=== PATIENT | male | born 1990 | race Hispanic/Latino ===

== ENCOUNTER 2018-09-29 09:20 | Emergency (ER) | payer SELFPAY ==
[2018-09-29] MEDS ORDERED: ACETAMINOPHEN EXTRA STRENGTH 500 MG TABLET ONE (09:42)
[2018-09-29 10:23] LABS: BILIRUBIN,URINE Negative (NEGATIVE); COLOR,URINE Yellow (YELLOW); GLUCOSE, URINE (UA) Negative (NEGATIVE); KETONES,URINE Trace mg/dL (NEGATIVE); LEUKOCYTE ESTERASE ,URINE Negative (NEGATIVE); NITRATE,URINE Negative (NEGATIVE); OCCULT BLOOD,URINE Negative (NEGATIVE); PROTEIN,URINE Trace (NEGATIVE)
[2018-09-29 10:25] LABS: APPEARANCE,URINE CLEAR (CLEAR)
[2018-09-29 10:54] LABS: BACTERIA,URINE Few /HPF (None Seen); MUCUS,URINE Few LPF (None Seen); RBC,URINE 0-1 /HPF (0-1); SQUAMOUS EPITHELIAL CELL,UR 0-2 /HPF (0-2); WBC,URINE 0-1 /HPF (0-1)
[2018-09-29] MEDS ORDERED: KETOROLAC TROMETHAMINE 60 MG/2 ML VIAL ONE (12:14)
== END 2018-09-29 12:47 | disposition home or self-care (01) ==
LOC: EDH 09:20
DX: N50.3 Cyst of epididymis (principal); Z72.0 Tobacco use; Z98.890 Other specified postprocedural states
CPT/HCPCS: 76870; 81001; 96372; 99284; J1885

== ENCOUNTER 2021-08-28 06:19 | Emergency (ER) | payer SELFPAY ==
[~2021-08-28] VITALS: Ht 160 cm; Wt 74.8 kg
[2021-08-28] MEDS ORDERED: HYDROCODONE/ACETAMINOPHEN 10/325 MG TAB PO SCH (07:00)
[2021-08-28] MEDS ORDERED: PRED10 PO (07:00)
[2021-08-28] MEDS ORDERED: TRAM50TA2 PO (07:00)
[2021-08-28 07:31] VITALS: BP 109/81
== END 2021-08-28 07:41 | disposition home or self-care (01) ==
LOC: EDH 06:19
DX: M25.551 Pain in right hip (principal)
CPT/HCPCS: 73502